=== PATIENT | female | born 1955 | race Caucasian/White ===

== ENCOUNTER 2019-11-09 08:29 | Outpatient (RCR) | payer SELFPAY | END 2019-11-09 08:30 | disposition home or self-care (01) | LOC: ANHDMC 08:29 | PROVIDERS: PCP Internal Medicine; Visit Provider Internal Medicine | DX: E10.65 Type 1 diabetes mellitus with hyperglycemia (principal) | CPT/HCPCS: 99199 ==

== ENCOUNTER 2020-01-09 09:34 | Outpatient (RCR) | payer BC, SELFPAY ==
[2020-01-09 09:42] VITALS: BMI 28.7
== END 2020-04-08 23:59 | disposition home or self-care (01) ==
LOC: ANHDMC 09:34
PROVIDERS: PCP Internal Medicine; Visit Provider Internal Medicine
DX: E10.65 Type 1 diabetes mellitus with hyperglycemia (principal); Z71.3 Dietary counseling and surveillance; Z71.89 Other specified counseling
CPT/HCPCS: 97802; G0108

== ENCOUNTER 2022-02-18 11:24 | Outpatient (RCR) | payer BC, SELFPAY ==
[2022-02-18] MEDS: FAMOTIDINE 20 MG TABLET PO (11:34)
[2022-02-18] MEDS: diphenhydrAMINE HCl CAP 25 MG CAPSULE PO (11:34)
[2022-02-18] MEDS: ACETAMINOPHEN 325 MG TABLET 650 MG PO (11:34)
[2022-02-18 11:38] VITALS: BP 151/71; PULSE 69; TEMP 36.3
[2022-02-18 11:52] VITALS: PULSE 72; O2SAT 99
[2022-02-18] MEDS: BEBTELOVIMAB 175 MG/2 ML VIAL IV PUSH (11:57)
[2022-02-18 12:42] VITALS: BP 141/72; PULSE 62; O2SAT 100
== END 2022-02-18 16:00 ==
LOC: AMCINF 11:24
PROVIDERS: Visit Provider Internal Medicine Hematology & Oncology
DX: U07.1 COVID-19 (principal); E11.9 Type 2 diabetes mellitus without complications
CPT/HCPCS: A9270; M0222; Q0222

== ENCOUNTER 2023-12-29 08:43 | Outpatient (CLI) | payer BC, SELFPAY ==
--- NOTE | ~2023-12-29 | MM_ITS ---
EXAMINATION: MM screening [facility] BI w nalini HISTORY: Screening mammogram TECHNIQUE: Craniocaudal and mediolateral oblique 3-D tomosynthesis images were obtained and synthetic 2-D images were generated. CAD analysis was submitted and interpreted. COMPARISON: 03/15/2018 bilateral diagnostic mammogram BREAST PARENCHYMAL COMPOSITION: FINDINGS: Biopsy marker on the left. History of bilateral benign breast biopsies. There is an approximately 1.7 cm circumscribed low-density opacity with halo sign in the posterior ou ter mid left breast. A circumscribed margins in particular halo sign are most consistent with benign process, likely a benign cyst. Scattered bilateral benign calcifications are noted. Otherwise there is no evidence of suspicious mass, calcification, or architectural distortion to sugg est malignancy in either breast. There has been no other suspicious interval change. IMPRESSION: 1. Benign findings. No mammographic evidence of malignancy. 2. Recommend routine screening mammography in one year. BI-RADS Category 2: Benign finding(s). Reviewed, dictated and finalized at location A.
== END 2023-12-29 08:44 | disposition home or self-care (01) ==
LOC: ANHIMG 08:47
PROVIDERS: PCP Internal Medicine; Visit Provider Nurse Practitioner
DX: Z12.31 Encounter for screening mammogram for malignant neoplasm of breast (principal); N60.02 Solitary cyst of left breast
CPT/HCPCS: 77063; 77067

== ENCOUNTER 2024-02-05 15:36 | Emergency (ER) | payer BC, SELFPAY ==
--- NOTE | ~2024-02-05 | XR_ITS ---
XR humerus LT Ordering provider: Enoc Eubanks MD History: . trauma . Comparison: None. FINDINGS: BONES: No acute fracture or dislocation. JOINT SPACES: Normal. SOFT TISSUES: Normal. IMPRESSION: No acute osseous abnormality left humerus. Reviewed, dictated and finalized at location A.
--- NOTE | ~2024-02-05 | XR_ITS ---
XR shoulder LT min 2V Ordering provider: Enoc Eubanks MD History: . trauma . Comparison: None. FINDINGS: BONES: Fracture of the distal metaphysis of the left clavicle with no displacement. No other fracture s seen. JOINT SPACES: The acromioclavicular joint is normal. The glenohumeral joint is normal. SOFT TISSUES: Normal. IMPRESSION: Fracture of the distal metaphysis of the left clavicle with no displacement of bones. Reviewed, dictated and finalized at location A.
[2024-02-05 15:49] VITALS: BP 185/70; PULSE 92; RESP 18; TEMP 36.6; O2SAT 97
--- NOTE | 2024-02-05 19:04 | ED.UPPEXIN ---
HPI - Extremity Injury (Upper) General Chief Complaint: Extremity Injury, Upper Stated Complaint: FALL L SHOULDER INJURY Time Seen by Provider: 02/05/24 17:25 Related Data Home Medications Medication Instructions Recorded Confirmed sumatriptan 20 mg/actuation nasal 20 mg intranasal Q2H PRN Shortness 09/12/19 09/17/23 spray (Imitrex) Of Breath Allergies Allergy/AdvReac Type Severity Reaction Status Date / Time hydrochlorothiazide Allergy Unknown Muscle Verified 02/05/24 15:37 weakness PMFSH Past Medical History Medical History (Updated 02/05/24 @ 19:05 by Enoc Eubanks MD) Anxiety Back pain Cataract Chicken pox Chlamydia COVID-19 Diabetes Goiter H/O one miscarriage Hearing loss Heartburn Hemorrhoids History of measles, mumps, or rubella Hyperlipidemia Hypertension Hypothyroidism Migraine Murmur Post-menopausal Rash Recurrent UTI Thyroid disease Type 1 diabetes Vitamin D deficiency Surgical History Surgical History H/O breast biopsy Left 2017, 2018 H/O knee surgery 2006, 2012 H/O thyroidectomy H/O: hysterectomy History of cholecystectomy History of tonsillectomy Family History Family History Mother Diabetes mellitus Family history of dementia Father Family history of cardiovascular disease Sibling Brain tumor Social History Social History (Updated 09/17/23 @ 09:44 by Margaret Bose [facility]) Smoking status: Never smoker Alcohol intake: never Do You Feel Safe in your Home?: Yes Lack of Transportation: No Lack of Food: Never True Current Housing: I Do Not Have Housing Concerned About Future Housing: No Difficulty Paying Gas/Electric Bills: No Difficulty Paying for Meds: No Currently Unemployed: No Education: High School Diploma/GED Difficulty w/ Childcare or Family Care: No Spiritual care concerns: No Course Vital Signs Vital signs: Vital Signs Temperature 97.8 F 02/05/24 15:49 Pulse Rate 92 02/05/24 15:49 Respiratory Rate 18 02/05/24 15:49 Blood Pressure 185/70 H 02/05/24 15:49 Pulse Oximetry 97 02/05/24 15:49 Temperature 97.8 F 02/05/24 15:49 Pulse Rate 92 02/05/24 15:49 Respiratory Rate 18 02/05/24 15:49 Blood Pressure 185/70 H 02/05/24 15:49 Pulse Oximetry 97 02/05/24 15:49 Discharge Plan Discharge Clinical Impression: Broken clavicle Patient Disposition: Home, Self-Care Condition: Stable Instructions: Clavicle Fracture (ED), How to Use a Sling (ED) Additional Instructions: Return the ER if you suffered no injury, you have numbness or weakness in arm or leg, or you have additional concerns. Follow-up with orthopedic surgery. Prescriptions: New hydrocodone-acetaminophen 5-325 mg tablet 1 tablet PO Q6H PRN (Reason: pain) Qty: 20 0RF No Action propranolol 20 mg tablet 20 mg PO DAILY PRN (Reason: anxiety) Qty: 30 0RF sumatriptan [Imitrex] 20 mg/actuation spray,non-aerosol 20 mg NASAL Q2H PRN (Reason: Shortness Of Breath) Rx Instructions: administer into one nostril as a single dose; if needed, administer 2nd dose into other nostril NTE 2 (total) doses per headache episode insulin aspart U-100 [Novolog U-100 Insulin aspart] 100 unit/mL solution 6 unit SUB-Q TID Qty: 3 3RF Lantus U-100 Insulin 100 unit/mL solution 12 unit SUB-Q DAILY Qty: 3 3RF (DME) FreeStyle Alfred 2 Helix Misc See Rx Instructions .ROUTE .MEDSUPPLY Qty: 1 0RF Rx Instructions: As directed (DME) FreeStyle Lite Strips Strip See Rx Instructions .ROUTE .MEDSUPPLY Qty: 300 3RF Rx Instructions: Use to test BS TID Glucagon (HCl) Emergency Kit 1 mg recon soln 1 mg subcut Q20M PRN (Reason: hypoglycemia) Qty: 1 3RF Rx Instructions: until target blood sugar attained levothyroxine [Synthroid] 100 mcg tablet 100 mcg PO PATRICIA
[2024-02-05 20:45] VITALS: BP 164/78; PULSE 88; RESP 15; O2SAT 100
== END 2024-02-05 20:45 | disposition home or self-care (01) ==
PROVIDERS: Emergency Provider Emergency Medicine; PCP Internal Medicine
DX: S42.032A Displaced fracture of lateral end of left clavicle, initial encounter for closed fracture (principal); E89.0 Postprocedural hypothyroidism; E78.5 Hyperlipidemia, unspecified; E10.9 Type 1 diabetes mellitus without complications; E55.9 Vitamin D deficiency, unspecified; Z86.16 Personal history of COVID-19; Z87.440 Personal history of urinary (tract) infections; Z90.710 Acquired absence of both cervix and uterus; Z90.49 Acquired absence of other specified parts of digestive tract; W01.198A Fall on same level from slipping, tripping and stumbling with subsequent striking against other object, initial encounter
CPT/HCPCS: 73030; 73060; 99283; 99284; A4565

== ENCOUNTER 2025-01-19 13:12 | Outpatient (CLI) | payer BC, SELFPAY ==
--- NOTE | ~2025-01-19 | MR_ITS ---
EXAMINATION: MR brain/brain stem wo/w con DATE: 01/19/2025 14:01 INDICATION: Amnesia TECHNIQUE: Magnetic resonance imaging (MRI) of the brain and brainstem was performed without and with 17 mL Multihance intravenous contrast. Sequences included sagittal and axial T1-weighted SE, axial d iffusion-weighted FS SE, axial 3D SWAN, axial T2-weighted FLAIR, and axial T2-weighted FSE. Postcontr ast axial and coronal T1-weighted SE was obtained. Apparent diffusion coefficient (ADC) maps were cre ated. COMPARISON: None. FINDINGS: There are no areas of restricted diffusion to suggest acute infarction. No intracranial hemorrhage or abnormal intracranial mass lesion. There are scattered areas of nonspecific increased T2-weighted si gnal intensity in the cerebral white matter, predominantly involving the deep and periventricular whi te matter which is within normal limits for age and likely sequela of chronic small vessel ischemic d isease.. There are no intraparenchymal signal abnormalities seen on the other pulse sequences. The ve ntricles are symmetric and normal in size. There are no abnormal extra-axial fluid collections. Flow voids are seen in the cerebral arteries on the T2-weighted sequences consistent with their expected p atency. Visualized orbits and soft tissues are unremarkable. There are no areas of abnormal enhanceme nt on the post contrast images. IMPRESSION: 1. Normal aging brain with mild scattered nonspecific white matter T2 hyperintensity consistent with chronic small vessel ischemic disease. No acute intracranial process or abnormally enhancing brain le sions. Reviewed, dictated and finalized at location B. IMPRESSION: 1. Normal aging brain with mild scattered nonspecific white matter T2 hyperinte nsity consistent with chronic small vessel ischemic disease. No acute intracran ial process or abnormally enhancing brain lesions.
--- OUTSIDE RECORDS SUMMARY | 2025-01-19 13:17 | XMS_ITS | Continuity of Care Document ---
Author Name [facility] Organization [facility] Care Team Providers Care Ship Fitter Name Role Phone [facility] Unavailable Unavailable Medications Combined list of outpatient medications from Department of Defense and Veterans Affairs facilities.Medications provided include 1) outpatient medications from the last 15 months, and 2) patient-reported medications. Medication Details Route Status Patient Instructions Prescription Expires Prescription Number Last Dispense Date Ordering Provider Order Date Order Qty Source amLODIPine (U/D) 5 MG ORAL TAB Be careful if taking OTCs.Ky e or use exactly as directed . 10/21/2024 [id number] 2023 90 [employer] Giancarlo [facility]ERRELL [place] [place] amLODIPine 5 mg tablet = 1 tab(s), Oral, Daily, # 90 EA, 1 total refill(s ), Hard Stop Oral (given by mouth) Ordered 08/10/2025 5 2024 90.0 Ambulat ory Pharmac y amLODIPine 5 mg tablet 5 mg, Oral, Daily, # 90 EA, 1 total refill(s ), Hard Stop Oral (given by mouth) Discont inued 08/10/2024 4 2023 90.0 Ambulat ory Pharmac y amLODIPine 5 mg tablet 5 mg, Oral, Daily, # 90 EA, 1 total refill(s ), Hard Stop Oral (given by mouth) Complet ed 03/11/2024 3 2023 90.0 Ambulat ory Pharmac y BD insulin syringe 0.3 ml 30 g 0.5 in [100] See Instruct kaylee, # 400 EA, 1 total refill(s ), Hard Stop Complet ed 06/21/2024 4 2023 400.0 Ambulat ory Pharmac y BD insulin syringe 0.3 ml 30 g 0.5 in [100] See Instruct kaylee, # 400 EA, 1 total refill(s ), Hard Stop Complet ed 01/02/2025 4 2024 400.0 Ambulat ory Pharmac y BD insulin syringe 0.3 ml 30 g 0.5 in [100] See Instruct ions, # 400 EA, 3 total refill(s ), Hard Stop Ordered 06/07/2025 4 2023 400.0 Ambulat ory Pharmac y BD insulin syringe 0.5 ml 30 g 12 mm [100EA] See Instruct ions, # 400 EA, 1 total refill(s ), Hard Stop Discont inued 02/02/2024 4 2023 400.0 Ambulat ory Pharmac y fosinopril 40 mg tablet 40 mg, Oral, Daily, # 90 EA, 3 total refill(s ), Hard Stop Oral (given by mouth) Discont inued 08/10/2024 4 2023 90.0 Ambulat ory Pharmac y fosinopril 40 mg tablet = 1 tab(s), Oral, Daily, # 90 EA, 1 total refill(s ), Hard Stop Oral (given by mouth) Ordered 08/10/2025 5 2024 90.0 Ambulat ory Pharmac y fosinopril 40 mg tablet 40 mg, Oral, Daily, # 90 EA, 1 total refill(s ), Hard Stop Oral (given by mouth) Complet ed 03/11/2024 3 2023 90.0 Ambulat ory Pharmac y insulin aspart 100 units/mL [10mL] = 0.06 mL, SubCutan eous, TID, # 30 mL, 3 total refill(s ), Hard Stop SubCut aneous (under the skin) Ordered 06/07/2025 5 2024 30.0 Ambulat ory Pharmac y insulin aspart 100 units/mL [10mL] See Instruct ions, # 30 mL, 0 total refill(s ), Hard Stop Complet ed 03/31/2024 4 2023 30.0 Ambulat ory Pharmac y insulin glargine 100 units/mL subcutaneou s solution INJECT 13 TO 16 UNITS SUB-CUTA NEOUSLY EVERY DAY DIRECTED *DISCARD VIAL 28 DAYS AFTER INITIAL USE*, # 30 mL, 1 total refill(s ), Acute Complet ed 04/13/2023 3 2022 30.0 Ambulat ory Pharmac y insulin glargine [Lantus] 100 units/mL inj-vial [10mL] See Instruct ions, SubCutan eous, # 30 mL, 3 total refill(s ), Hard Stop SubCut aneous (under the skin) Complet ed 02/01/2024 3 2023 30.0 Ambulat ory Pharmac y insulin glargine [Lantus] 100 units/mL inj-vial [10mL] = 0.12 mL, SubCutan eous, Daily, # 30 mL, 3 total refill(s ), Hard Stop SubCut aneous (under the skin) Ordered 06/07/2025 5 2024 30.0 Ambulat ory Pharmac y insulin glargine [Lantus] 100 units/mL inj-vial [10mL] See Instruct ions, # 30 mL, 0 total refill(s ), Hard Stop Complet ed 04/09/2024 4 2023 30.0 Ambulat ory Pharmac y levothyroxi ne (Synthroid) 100 mcg tablet 100 mcg, Oral, Daily, # 90 EA, 3 total refill(s ), Hard Stop Oral (given by mouth) Complet ed 03/02/2024 4 2023 90.0 Ambulat ory Pharmac y levothyroxi ne (Synthroid) 100 mcg tablet = 1 tab(s), Oral, Daily, # 90 EA, 3 total refill(s ), Hard Stop Oral (given by mouth) Discont inued 01/09/2025 5 2024 90.0 Ambulat ory Pharmac y levothyroxi ne (Synthroid) 100 mcg tablet = 1 tab(s), Oral, Daily, # 90 EA, 3 total refill(s ), Soft Stop Oral (given by mouth) Ordered 5 2024 90.0 Ambulat ory Pharmac y NovoLOG aspart 100 units/mL [10mL] See Instruct ions, SubCutan eous, # 30 mL, 3 total refill(s ), Hard Stop SubCut aneous (under the skin) Complet ed 02/01/2024 4 2023 30.0 Ambulat ory Pharmac y NovoLOG aspart 100 units/mL [10mL] See dose instruct ions in comments , # 30 mL, 1 total refill(s ), Acute Complet ed 04/13/2023 3 2022 30.0 Ambulat ory Pharmac y rosuvastati n 5 mg tablet = 1 tab(s), Oral, every other day, # 45 EA, 1 total refill(s ), Hard Stop Oral (given by mouth) Ordered 08/10/2025 5 2024 45.0 Ambulat ory Pharmac y rosuvastati n 5 mg tablet 5 mg, # 45 EA, 3 total refill(s ), Hard Stop Discont inued 08/10/2024 4 2023 45.0 Ambulat ory Pharmac y rosuvastati n 5 mg tablet See Instruct ions, # 45 EA, 1 total refill(s ), Hard Stop Discont inued 08/31/2023 3 2023 45.0 Ambulat ory Pharmac y Allergies, Adverse Reactions, Alerts Combined list of allergies from Department of Defense and Veterans Affairs facilities. It does not include entries that were removed or entered in error. Substance Category Reaction Severity Reaction type Status Date Reported Comments Source HYDROCHLOROT HIAZIDE Drug allergy (disorder) Unknown active 6 [employer] [facility]carlo [facility]ERRELL [place] [place] hydroCHLOROt hiazide Propensity to adverse reactions to drug Unknown Active muscle weakness,r aramis, shortness of breath Unknown Organizat ion Immunizations Combined list of available immunizations from the Department of Defense and Veterans Affairs facilities. Immunization Series Date Given Administered By Site Reaction Lot Number CVX Code Drug Boat Canvas Installer Status Comments Source influenza virus vaccine, whole virus 2002 [id number] [employer] ls complet ed influenza virus vaccine, whole virus 07/10/03 Given Ambulat ory Pharmac y influenza virus vaccine, whole virus 2002 zzLef t Arm [id number] 16 Nov[employer]is Pharm[employer] ls complet ed influenza virus vaccine, whole virus 07/10/03 Given Ambulat ory Pharmac y influenza virus vaccine, whole virus 1 2002 Unknown, Provider [id number] 16 [employer] (PWJ) complet ed influenza virus vaccine, whole virus DoD influenza virus vaccine, whole virus 2000 zzLef t Arm [id number] sanofi pasteur complet ed influenza virus vaccine, whole virus 07/01/01 Given Ambulat ory Pharmac y influenza virus vaccine, whole virus 1 2000 Unknown, Provider [id number] 16 Sanofi Pasteur ([facility]) complet ed influenza virus vaccine, whole virus DoD influenza virus vaccine, whole virus 2000 zzLef t Arm [id number] 16 [place] complet ed influenza virus vaccine, whole virus 09/03/00 Given Ambulat ory Pharmac y influenza virus vaccine, whole virus 2000 [id number] 16 [employer] complet ed influenza virus vaccine, whole virus 09/03/00 Given Ambulat ory Pharmac y influenza virus vaccine, whole virus 1 2000 Unknown, Provider [id number] 16 [facility] complet ed influenza virus vaccine, whole virus DoD Procedures Combined list of: 1) Procedures from Department of Veterans Affairs facilities going back up to thelast 18 months, not all [place] non-surgical procedures are included; 2) All procedures from the Department of Defense facilities. Procedure Procedure Type Code Date Perfomer Comments Sourc e No data available for this section Ambulato ry Pharmacy LOCAL EXCISION OF LESION OF BREAST 09/24/1995 DoD Social History Combined list of available smoking, tobacco, and other social history from Department of Defense and Veterans Affairs facilities. Social History Type Response Date Comment Sourc e This section is an empty social history section. DoD Assessment and Plan Combined list of future care activities from Department of Defense and Veterans Affairs facilities (e.g., assessment and plan notes, appointments, orders, and referrals). Additional future care activities may be listed in the Plan of Care section. Result Assessment and Plan Date Source Assessment and Plan No data available for this section 01/19/2025 Ambulatory Pharmacy Functional Status Combined list of recent functional and cognitive assessments recorded at Department of Defense and [facility] Affairs ([place] Functional [place] Measurement (FIM) Scale: 1 = Total Assistance (Subject = 0% +), 2 = Maximal Assistance (Subject = 25% +), 3 = Moderate Assistance (Subject = 50% +), 4 = Minimal Assistance (Subject = 75% +), 5 = Supervision, 6 = Modified Clinton (Device), 7 = Complete Clinton (Timely, Safely). Assessment Date/Time Source Assessment Type Assessment Skill Assessment Score Assessment Details No data available for this section
--- OUTSIDE RECORDS SUMMARY | 2025-01-19 13:17 | XMS_ITS | Referral Summary ---
Author Organization [facility] Address [address] [place] [address] Phone Care Team Providers Care Federal Judge Name Role Phone Allie Hubbard NP Primary Care Provider [phone] Allergies Active Allergy Reactions Criticality Noted Date Comments Hydrochlorothiazide Muscle pain,Shortnes s of breath,Unknown High 03/18/2018 muscle weakness,rash, shortness of breath Medications multivit minerals-folic acid-lutein (ESSENTIAL WOMAN 50+) 0.4-250 mg-mcg tablet daily Active fosinopril (MONOPRIL) 40 mg tablet Take 1 tablet (40 mg total) by mouth daily Active insulin aspart U-100 (NovoLOG U-100 Insulin aspart) 100 unit/mL injection Inject under the skin 6 Active levothyroxine (SYNTHROID, LEVOTHROID) 125 mcg tablet Take 100 mcg by mouth daily 2 Active insulin glargine (LANTUS) 100 unit/mL injection Inject 16 Units under the skin nightly Active dilTIAZem CD/XR/XT (CARDIZEM CD,DILACOR XR) 120 mg 24 hr capsule Take 1- 2 tablets daily for palpatations 180 capsule 3 9 Active Additional Information Patient not taking.Reported on 2023 amLODIPine (NORVASC) 5 mg tablet Take 1 tablet (5 mg total) by mouth daily 3 Active rosuvastatin (CRESTOR) 5 mg tablet Take 1 tablet (5 mg total) by mouth once a week 2X weekly Active propranoloL (INDERAL) 20 mg tablet TAKE 1 TABLET BY MOUTH ONCE DAILY NEEDED FOR ANXIETY 3 Active Active Problems Problem Noted Date Diagnosed Date Palpitations 10/06/2012 Type 1 diabetes mellitus 07/28/2012 Thyroid activity decreased 12/24/2011 Hypertension 12/24/2011 Hyperlipidemia 12/24/2011 Social History Tobacco Use Types Packs/Day Years Used Date Smoking Tobacco: Never Smokeless Tobacco: Never AUDIT-C Answer Date Recorded Q1: How often do you have a drink containing alcohol? Never 05/04/2024 Q2: How many drinks containi ng alcohol do you have on a typical day when you are drinking? Patient does not drink Q3: How often do you have si x or more drinks on one occasion? 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 Gender Identity Not on file Sexual Orientation Not on file Last Filed Vital Signs Vital Sign Reading Time Taken Comments Blood Pressure 145/82 05/04/2024 8:04 AM CDT Pulse 75 05/04/2024 8:04 AM CDT Temperature - - Respiratory Rate 18 05/04/2024 8:04 AM CDT Oxygen Saturation 98% 01/17/2019 2:54 PM CDT Inhaled Oxygen Concentration - - Weight 77.6 kg (171 lb) 05/04/2024 8:04 AM CDT Height 154.9 cm (5' 1) 05/04/2024 8:04 AM CDT Body Mass Index 32.31 05/04/2024 8:04 AM CDT Plan of Treatment Not on file Insurance [employer] [facility] [place] [address] [address] [place] [address] [place] [address] [place] Care Teams Federal Judge Relationship Specialty Start Date End Date Allie Hubbard NP [address] [place] [address] [address] PCP - General Internal Medicine 10/12/24
--- OUTSIDE RECORDS SUMMARY | 2025-01-19 13:17 | XMS_ITS | Clinical Summary ---
Author Organization [facility] Address [address] [place] [address] Phone Care Team Providers Care Supervisor Commissary Production Name Role Phone Allie Hubbard NP Primary Care Provider [phone] Allergies Active Allergy Reactions Criticality Noted Date [...] activity decreased 12/24/2011 Hypertension 12/24/2011 Hyperlipidemia 12/24/2011 Surgical History Surgery Date Site/Laterality Comments THYROID SURGERY TONSILLECTOMY HYSTERECTOMY CHOLECYSTECTOMY Medical History Medical History Date Comments Hypertension Thyroid disease Depression Migraines Diabetes mellitus (HCC) Family History Medical History Relation Name Comments Heart attack Father Family history of heart attack - (Added by TW Conv) Diabetes Other Heart disease Other Hypertension Other Relation Name Status Comments Father Other Social History Tobacco Use Types Packs/Day Years [...] on file 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 Gender Identity Not on file Sexual Orientation Not on file Obstetrics History Last Filed Vital Signs Vital Sign Reading [...] 05/04/2024 8:04 AM CDT Plan of Treatment Health Maintenance Due Date Last Done Comments Albumin Creatinine Ratio, Urine 1954 Colon Cancer Screening-Colonoscopy 1954 Depression Screening 1954 Fall Risk Assessment 1954 Foot Exam 1954 Hemoglobin A1C 1954 Hepatitis C Screening 1954 Osteoporosis Screening-Bone Density Scan 1954 TSH Level 1954 eGFR 1954 Dilated Eye Exam 1964 Lipid Panel 1964 DTaP/Tdap/Td Vaccine (1 - Tdap) 1965 Hepatitis B Screening 1972 Pneumococcal vaccine 65+ (1 of 2 - PCV) 1973 Zoster Vaccine (1 of 2) 2004 Well Visit 65+ 2019 Breast Cancer Screening-Mammogram 03/17/2020 019 Influenza Vaccine (Season Ended) 2025 07/10/2003, 07/01/2001, 09/03/2000 Insurance [employer] [place] [employer] [address] [employer] [place] [address] [employer] MD Care Teams Supervisor Commissary Production Relationship Specialty Start Date End Date Allie Hubbard NP [address] [place] [address] [address] [place], [place] [id number] PCP - General Internal Medicine 10/12/24
--- OUTSIDE RECORDS SUMMARY | 2025-01-19 13:17 | XMS_ITS | Clinical Summary ---
Author Organization [facility] Address [address] 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 This disclosure is being madepursuant to the Care Everywhere program and may not contain all information available regarding this patient. Last updated 18.[facility] [employer] Family History Medical History Relation Name Comments Cancer - Breast Paternal Aunt Relation Name Status Comments Paternal Aunt Social History Tobacco Use Types Packs/Day Years Used Date Smoking Tobacco: Never Assessed Comments Unknown Sex and Gender Information Value Date Recorded Sex Assigned at Not on file Legal Sex Female 3:55 PM CDT Gender Identity Not on file Sexual Orientation Not on file Plan of Treatment Health Maintenance Due Date Last Done Comments BONE DENSITY TESTING 1954 COLOGUARD (AGES 45-75) - COL ON CA SCREENING 1954 COLON MONITORING 1954 COLONOSCOPY - COLON CA SCREENING 1954 CT COLONOGRAPHY - COLON CA SCREENING 1954 Colorectal Cancer Screening 1954 FIT - COLON CA SCREENING 1954 FLEX SIG - COLON CA SCREENING 1954 LIPID TESTING 1954 HEPATITIS C SCREENING 03/03/1972 DTAP/TDAP/TD VACCINES (1 - Tdap) 1973 PNEUMOCOCCAL VACCINE 50+ (1 of 1 - PCV) 2004 ZOSTER VACCINE (1 of 2) 2004 MAMMOGRAM 03/17/2021 03/17/2019, 04/20/2017 COVID-19 VACCINE (2023-2 5 season) 2024 DEPRESSION SCREENING 08/23/2024 INFLUENZA VACCINE (Season Ended) 2025 Respiratory Syncytial Virus (RSV) Vaccine Pt: or over 60 yrs (1 - 1-dose 75+ series) 2029 HEPATITIS B VACCINE Aged Out No longe r eligible based on patient's age to complete this topic HIB VACCINE Aged Out No longer eligi ble based on patient's age to complete this topic HPV VACCINE Aged Out No longer eligi ble based on patient's age to complete this topic MENINGOCOCCAL (Group B) VACCINE SHARED DECISION-MAKING Aged Out No longer eligible based on patient's age to complete this topic MENINGOCOCCAL GROUPS A/C/Y/W VACCINE Aged Out No longer eligible b ased on patient's age to complete this topic Procedures Procedure Name Priority Date/Time Associated Diagnosis Comments MAMMO BILAT SCREENING Routine 03/17/2019 1:47 PM CDT Breast cancer screening from Last 3 Months or Most Recently Relevant to Health Maintenance Results * MAMMO BILAT SCREENING (03/17/2019 1:47 PM CDT) Anatomical Region Laterality Modality Breast Bilateral Mammography 03/20/2019 10:0 7 AM CDT Addenda Addendum by Marilin Simpson MD on 03/22/2019 12:39 PM CDT ORIGINAL REPORT BILATERAL SCREENING MAMMOGRAM DATE: 03/17/2019 COMPARISON: Multiple prior mammograms just received from [facility] dated 03/19/2017 and 05/17/2015. HISTORY: Screening mammogram. 64-year-old female with past medical history of mastitis/infection in the left breast as well as bilateral breast cysts. Remote history of atypical hyperplasia status post biopsy at age 36. She was last seen at [facility] on 03/19/2017. At that time, 2 probably benign left breast masses at 4:00, 7 cm from the nipple were identified on the ultrasound. Short-term follow-up ultrasound was recommended. She does not appear to have returned for follow-up. TECHNIQUE: Images were performed using 3D tomosynthesis images with reconstructed/synthetic 2D images and CAD analysis. BREAST COMPOSITION: The breasts are heterogeneously dense, which may obscure small masses. FINDINGS: No suspicious mass or calcifications in either breast. Bilateral benign-appearing stable calcifications. Bilateral oval circumscribed masses, most of which have decreased in size, consistent with a benign etiology. IMPRESSION: No mammographic evidence of malignancy in either breast. ASSESSMENT: BI-RADS 0: Need additional imaging evaluation. RECOMMENDATION: Follow-up targeted ultrasound of the left breast, as per [facility]. Report dictated by Garcia Auguste DO (psychiatry resident). Dr. RAMON Cano M.D. have personally reviewed and interpreted this examination/study. This report was electronically signed by RAMON JASSO M.D. on 03/20/2019 1:23 PM . ADDENDUM #1 Addendum: More recent mammograms from [facility] on 03/15/2018, as well as a path report from core needle biopsy of the left breast performed on September 06 2018 are now available for review. With this additional information, the previously described probably benign mass within the left breast for which follow-up was recommended and has been biopsied and is benign. No suspicious new mass, grouped microcalcification, or architectural distortion is seen within either breast. Small circumscribed masses within both breasts are noted, some of which have increased and some of which have decreased in size, considered benign. A biopsy marker is seen within the lower outer left breast as well as the upper outer left breast. IMPRESSION: No mammographic evidence of malignancy. ASSESSMENT: BI-RADS category 2, benign findings. Recommendation: Annual screening mammograms are recommended. This report was electronically signed by MICHI SIMPSON M.D. on 03/22/2019 12:36 PM . Impressions 03/20/2019 1:23 PM CDT IMPRESSION: No mammographic evidence of malignancy in either breast. ASSESSMENT: BI-RADS 0: Need additional imaging evaluation. RECOMMENDATION: Follow-up targeted ultrasound of the left breast, as per [facility]. Report dictated by Garcia Auguste DO (psychiatry resident). Dr. RAMON Cano M.D. have personally reviewed and interpreted this examination/study. This report was electronically signed by RAMON JASSO M.D. on 03/20/2019 1:23 PM . Narrative 03/20/2019 1:23 PM CDT BILATERAL SCREENING MAMMOGRAM DATE: 03/17/2019 COMPARISON: Multiple prior mammograms just received from [facility] dated 03/19/2017 and 05/17/2015. HISTORY: Screening mammogram. 64-year-old female with past medical history of mastitis/infection in the left breast as well as bilateral breast cysts. Remote history of atypical hyperplasia status post biopsy at age 36. She was last seen at [facility] on 03/19/2017. At that time, 2 probably benign left breast masses at 4:00, 7 cm from the nipple were identified on the ultrasound. Short-term follow-up ultrasound was recommended. She does not appear to have returned for follow-up. TECHNIQUE: Images were performed using 3D tomosynthesis images with reconstructed/synthetic 2D images and CAD analysis. BREAST COMPOSITION: The breasts are heterogeneously dense, which may obscure small masses. FINDINGS: No suspicious mass or calcifications in either breast. Bilateral benign-appearing stable calcifications. Bilateral oval circumscribed masses, most of which have decreased in size, consistent with a benign etiology. Procedure Note Ramon Jasso MD / Marilin Simpson MD - 03/20/2019 BILATERAL SCREENING MAMMOGRAM DATE: 03/17/2019 COMPARISON: Multiple prior mammograms just received from [facility] dated 03/19/2017 and 05/17/2015. HISTORY: Screening mammogram. 64-year-old female with past medicalhistory of mastitis/infection in the left breast as well as bilateral breast cysts. Remote history of atypical hyperplasia status post biopsy at age 36. She was last seen at [facility] on 03/19/2017. At that time,2 probably benign left breast masses at 4:00, 7 cm from the nipple were identified on the ultrasound. Short-term follow-up ultrasound was recommended. She does not appear to have returned for follow-up. TECHNIQUE: Images were performed using 3D tomosynthesis images with reconstructed/synthetic 2D images and CAD analysis. BREAST COMPOSITION: The breasts are heterogeneously dense, which may obscure small masses. FINDINGS: No suspicious mass or calcifications in either breast.Bilateral benign-appearing stable calcifications. Bilateral oval circumscribed masses, most of which have decreased in size, consistent with a benign etiology. IMPRESSION: No mammographic evidence of malignancy in either breast. ASSESSMENT: BI-RADS 0: Need additional imaging evaluation. RECOMMENDATION: Follow-up targeted ultrasound of the left breast, as per [facility]. Report dictated by Garcia Auguste DO (psychiatry resident). I, Dr. RAMON JASSO M.D. have personally reviewed and interpreted this examination/study. This report was electronically signed by RAMON JASSO M.D. on 03/20/2019 1:23 PM . Tabatha Carranza DO MAMMO ORDERABLES Edited Res ult - Final from Last 3 Months or Most Recently Relevant to [place] [id number] ANTHEM ANTHEM Care Teams Diesel Truck Mechanic Relationship Specialty Start Date End Date Garcia Gonzales DO PCP - General Internal Medicine 03/17/19
--- OUTSIDE RECORDS SUMMARY | 2025-01-19 13:17 | XMS_ITS | Data Portability ---
Author Organization [place] [facility], Main Office Address [address] [place] [address] Care Team Providers Care Line Erector Name Role Phone TARIQ BAINS Primary Care Provider TARIQ BAINS Referring Provider [phone] Assessment Encounter Date Assessment Date Assessment LastModified by Organization Details LastModified Time 06/01/2024 06/01/2024 This note is dictated and transcribed by [employer]. Telecommunication Equipment Repairer variances may occur. Despite proofreading, typographical errors may occur. Occasional wrong-word or 'mtpfu-w-zfuz' substitutions may have occurred due to the inherent limitations of voice recording. Read the chart carefully and recognize, using context, where substitutions have occurred. Not available 06/01/2024 11:18:10 07/24/2024 07/24/2024 This note is dictated and transcribed by [employer]. Telecommunication Equipment Repairer variances may occur. Despite proofreading, typographical errors may occur. Occasional wrong-word or 'fzrjq-s-caxd' substitutions may have occurred due to the inherent limitations of voice recording. Read the chart carefully and recognize, using context, where substitutions have occurred. Not available 07/24/2024 10:01:52 09/04/2024 09/04/2024 This note is dictated and transcribed by [employer]. Telecommunication Equipment Repairer variances may occur. Despite proofreading, typographical errors may occur. Occasional wrong-word or 'cnghg-s-whcs' substitutions may have occurred due to the inherent limitations of voice recording. Read the chart carefully and recognize, using context, where substitutions have occurred. Not available 09/04/2024 10:34:06 Plan of Treatment Reminders Order Date Submit Date Provider Last Modified By Organization Details Last Modified Time Details Appointments None record ed. Lab None record ed. Referral None record ed. Procedures None record ed. Surgeries None record ed. Imaging XR, ankle, 3 or more view 024 06/01/20 24 [email or web address] [facility] [place], [address], [place], [address], 11:19:26 Medication Orders None record ed. Patient TargetsNo targets recorded. Patient Instructions Encounter Date Encounter Id Patient Instructions Last Modified By Organization Details Last Modified Time 06/01/2024 [id number] achilles tendon: exercises Not available 06/01/2024 11:21:02 achilles tendonitis education Not available 06/01/2024 11:21:02 physical therapy evaluation* [email or web address] Not available 06/08/2024 11:34:36 Reason for Referral None Reported. Results Created Date Observation Date Name Description Value Unit Range Abnormal Flag Note LastModifiedBy Organization Detail LastModifiedTime 01/10/20 21 XR, elbow No observ ation record ed. [id number] [id number] [place] [address], [place], [address], 10/21/2022 13:55:22 06/01/20 24 XR, ankle , 3 or more view No observ ation record ed. [email or web address] [facility] [place] [address], [place], [address], 06/01/2024 11:19:24 Result Notes None recorded. Problems Name Problem SNOMED Code Status Onset Date Resolution Date Notes Provider Name and Address Organization Details Recorded Time Medial epicondyli tis 99903540 Active Not Available [employer] 3 13:53:09 Left Achilles tendinitis 1969505863131 02 Active 2023 Percy Hernandez DPM [address] [facility] [address], [place], [address] , [facility] [employer] 4 11:18:08 Calcaneal spur 80519771 Active 2023 Percy Hernandez DPM [address], [place], [address] , [employer] 4 11:18:40 Problem Notes None recorded. Procedures Surgical History Date Name Laterality Status Provider Name and Address Organization Details Recorded Time 5 Joint Injection-Podi atry 6217 completed Percy Hernandez DPM [address], [place], [address], [employer] 09/04/2024 10:33:48 4 Plantar Fascia Injection Left Foot completed Percy Hernandez DPM [address], [place], [address], [employer] 07/24/2024 10:49:50 Imaging Results None recorded. Procedure Notes None recorded. Medical Equipment None Reported. Allergies Allergen ID Allergen Name Allergen Category Reaction Reaction Severity Criticality Documentation Date Start Date Code Code System Note Provider Name and Address Organization Details Recorded Time 59934 hydrochlo rothiazid e medicatio n respirato ry distress Not available Not available 10/21/2022 5487 RxNorm muscl e weakn ess Not Available [facility] 3 13:55:17 Medications Name Sig Start Date Stop Date Status Note LastModified by Organization Details LastModified Time hydrocodone 5 mg-acetamin ophen 325 mg tablet TAKE 1 TABLET BY MOUTH EVERY 6 HOURS NEEDED FOR PAIN 07/24 completed Not Available Not Available Not Available Synthroid 125 mcg tablet 07/24 completed Not Available Not Available Not Available Synthroid 100 mcg tablet active Not Available Not Available Not Available Lantus U-100 Insulin 100 unit/mL subcutaneou s solution active Not Available Not Available N ot Available amlodipine 5 mg tablet active Not Available Not Available Not Available Kenalog 10 mg/mL suspension for injection In office injection administe red by the provider active ND: 0003- 0494- 20 Not Available Not Available Not Available amlodipine 10 mg tablet 07/24 completed Not Available Not Available Not Available insulin aspart U-100 100 unit/mL subcutaneou s solution active Not Available Not Available N ot Available fosinopril 40 mg tablet active Not Available Not Available Not Available diclofenac sodium 75 mg tablet,karson yed release 07/24 completed Not Available Not Available Not Available sumatriptan 20 mg/actuatio n nasal spray 01/09 completed Not Available Not Available Not Available Premarin 0.3 mg tablet 01/09 completed Not Available Not Available Not Available Premarin 0.625 mg tablet 01/09 completed Not Available Not Available Not Available rosuvastati n 5 mg tablet active Not Available Not Available Not Available levothyroxi ne active Not Available Not Available Not Available Vitamin D3 active Not Available Not Av ailable Not Available Multiple Vitamin, Womens active Not Available Not Available Not Available lidocaine (PF) 10 mg/mL (1 %) injection solution In office injection administe red by the provider active [facility]: 0409- 4276- 17 Not Available Not Available Not Available BD Insulin Syringe Ultra-Fine 0.5 mL 30 gauge x 1/2 active Not Available Not Available Not Available BD Insulin Syringe Ultra-Fine 0.3 mL 30 gauge x 1/2 active Not Available Not Available Not Available FreeStyle Lite Strips active Not Available Not Available Not Available BD Insulin Syringe Ultra-Fine 0.3 mL 31 gauge x 5/16 active Not Available Not Available Not Available Fluzone Quad 2017-(PF) 60 mcg(15 mcgx4)/0.5 mL intramuscul ar syringe 01/09 completed Not Available Not Available Not Available FreeStyle Alfred 2 Sensor kit CHANGE EVERY 14 DAYS active Not Available Not Available No t Available FreeStyle Alfred 2 [place] USE DIRECTED 07/24 completed Not Available Not Available Not Available Vitals Date Recorded Body height Body mass index (BMI) Body weight Heart rate Respiratory rate Oxygen saturation Oxygen saturation in Arterial blood by Pulse oximetry Systolic blood pressure Diastolic blood pressure Provider Name and Address Organization Details Last Updated DateTime 5 170.18 cm 26.3 kg/m2 42418.5 2 g 73 /min 14 /min 99 % 99 % 159 mm[Hg] 90 mm[Hg] Danitza VERDIN - An[place] [employer] [facility] 5 09:53:52 Date Recorded Body height Body mass index (BMI) Body weight Heart rate Systolic blood pressure Diastolic blood pressure Provider Name and Address Organization Details Last Updated DateTime 5 170.18 cm 26.3 kg/m2 87378.5 2 g 79 /min 176 mm[Hg] 99 mm[Hg] Marilin Roman [facility] [employer] [facility] 5 10:41:48 Date Recorded Body mass index (BMI) Body height Body weight Provider Name and Address Organization Details Last Updated DateTime 01/09/2021 28.2 kg/m2 170.18 cm 82590.63 g Not Available [facility] 10/21/2022 13:52:55 Date Recorded Heart rate Respiratory rate Oxygen saturation Oxygen saturation in Arterial blood by Pulse oximetry Body height Body mass index (BMI) Body weight Systolic blood pressure Diastolic blood pressure Provider Name and Address Organization Details Last Updated DateTime 4 79 /min 14 /min 98 % 98 % 170.18 cm 26.3 kg/m2 87041.5 2 g 164 mm[Hg] 82 mm[Hg] Danitza [place] [employer] [facility] [employer] [facility] 4 10:35:04 Date Recorded Body height Body mass index (BMI) Body weight Heart rate Respiratory rate Oxygen saturation Oxygen saturation in Arterial blood by Pulse oximetry Systolic blood pressure Diastolic blood pressure Provider Name and Address Organization Details Last Updated DateTime 4 170.18 cm 26.3 kg/m2 58887.5 2 g 72 /min 14 /min 98 % 98 % 168 mm[Hg] 94 mm[Hg] Danitza [place] [employer] [facility] [employer] [facility] 4 09:47:28 Social History Question Answer Notes LastModified by [employer] Details LastModified Time Tobacco Smoking Status Never Smoker Not Available Replaced by [facility] 10/21/2022 13:52:24 What Is Your Level Of Caffeine Consumption? Occasional Information not available 06/01/2024 What Was The Date Of Your Most Recent Tobacco Screening? 06/01/2024 Information not available 06/01/2024 Has Tobacco Cessation Counseling Been Provided? No Information not available 06/01/2024 Sex: Unknown Functional Status Question Answer Note LastModified by [employer] Details LastModified Time Do you use any illicit or recreational drugs? No Information not available 06/01/2024 Do you or have you ever used any other forms of tobacco or nicotine? No Information not available 06/01/2024 What is your level of alcohol consumption? None [id number] Information not available 10/21/2022 Mental Status None recorded. Family History Relationship Description Onset Age of this Age Resolved Age Notes LastModified by Organization Details LastModified Time Father Heart disease [id number] Not available 10/21/2022 13:52:29 Father History of hypertension [id number] Not available 10/21/2022 13:52:29 Mother Diabetes mellitus [id number] Not available 10/21/2022 13:52:29 Brother Malignant neoplastic disease Not available 2023 11:18:50 Medical History Condition Response ARTHRITIS Y THYROID DISEASE Y HEADACHES/MIGRAINES Y ANXIETY DISORDER Y DIABETES, TYPE Y USE OF NSAIDS Y BACK / NECK PROBLEMS Y HYPERTENSION Y HIGH CHOLESTEROL / HYPERLIPIDEMIA Y Gynecological HistoryNo gynecological history recorded. Obstetrics History GPAL:G 0 P 0 0 0 0 Past Encounters Encounter ID Performer Location Encounter Start Date Encounter Closed Date Diagnosis/Indication Diagnosis SNOMED-CT Code Diagnosis ICD10 Code Diagnosis Note [id number] Maury Linda MD [facility] [place] [address] [facility] [address] [place] [address] 01/09/2021 00:00:00 01/09/2021 15:27:31 [id number] Percy Hernandez DPM [facility] [place] [address] [facility] [address] [place] [address] 06/01/2024 10:28:12 06/01/2024 11:35:33 Left Achilles tendinitis 7299887496 99705 M76.62 educated on conditionR ice therapy reviewedNo strenuous activities Will send to physical therapyEdu cated on heel lifts and appropriat e use of liftsfollo w-up in 1 month Calcaneal spur 09650309 M77.32 posterior heel [id number] Percy Hernandez DPM [facility] [place] [address] [facility] [address] [place] [address] 07/24/2024 09:36:25 08/17/2024 16:42:24 Left Achilles tendinitis 3844626444 30642 M76.62 educated on conditionp atient has Cam boot at home and I did recommend the patient use this daily with walking for the next 4 weeksRice therapy reviewedNo strenuous activities Will send to physical therapyfol low-up 4 weeks [id number] Percy Hernandez DPM [facility] [place] [address] [place] [address] 09/04/2024 09:42:55 09/15/2024 12:50:20 Left Achilles tendinitis 9974065691 83092 M76.62 steroid injection central aspect tendon sheath of the Achilles tendon--educa dayne on conditionp atient has Cam boot at home and I did recommend the patient use this daily with walking for the next 4 weeksRice therapy reviewedNo strenuous activities [place] physical therapyfol low-up 3 weeks [id number] Percy Hernandez DPM [facility] [place] [address] [place] [address] 10/02/2024 10:08:21 10/03/2024 15:26:44 Left Achilles tendinitis 3810648124 05457 M76.62 steroid injection central aspect tendon sheath of the Achilles tendon--educa dayne on conditionD C cam bootcontin ue supportive shoe gearRice therapy reviewedsl ow return to strenuous activities follow-up as needed Health Concerns Section Related Observation LastModified by Organization Detai ls LastModified Time None Recorded Concern Status LastModified by Organization Details LastModified Time None Recorded Advance Directives Directive None Recorded Payers Encounter Date Sequence Insurance Name Policy Number Policy Childress Covered Member ID Childress Member ID Guarantor Name 06/01/2024 1 [place] [id number] Wilmer Jacobson [id number] 18 Evelyn Boss McNeill 07/24/2024 1 [place] [id number] Wilmer Jacobson [id number] 18 Evelyn Boss McNeill 09/04/2024 1 [id number] Wilmer Jacobson [id number] 18 Evelyn Boss McNeill 10/02/2024 1 [place] [id number] Wilmer Jacobson [id number] Evelyn Boss Indira Notes Date Note Type Note Provider Name and Address Organization Details Recorded Time 01/09/2021 text/html Elbow/ForearmRep ort ed bypatient.Hand Dominance:left Location:lateral; deep Quality:aching; throbbing; frequent Severity:moderate Timing:recurrent; chronic Context:lifting; overuse Aggravating Factors:lifting; carrying; twisting; gripping; grasping Alleviating Factors:ice; rest; elevation; stretching Associated Symptoms:no weakness; no numbness; no tingling; no redness; no warmth; no ecchymosis; no catching/locking; no popping/clicking; no buckling; no grinding; no instability; no drainage; no fever; no chills; no weight loss; no change in bowel/bladder habits; no hand pain; no inflammatory bowel disease; no hypethesias; no paresthesias; no gout; no psoriasis; no arthritis;swelling; radiating to dorsal forearm Not Available [employer] 01/09/2021 15:27:31 06/01/2024 text/html . Patient is a 69-year-old female she presents the office with complaints of left Achilles tendon pain. Patient has been seen by another superintendent transmission in the past to which he has performed an MRI several years ago he also placed her in a boot for about 2 and half months. Patient states that she has not been to formal physical therapy she states that this has been ongoing for approximately 3 years and continues to have discomfort she has noticed thickening of the Achilles tendon. Patient denies any bruising, injury, swelling. Patient states when she is walking the Achilles becomes tender and painful she states that the pain is worse at night it is a dull achy sensation in the Achilles tendon she denies any other complaints. Percy Hernandez DPM [address] [facility] [address], [address], [employer] 06/01/2024 11:34:35 07/24/2024 text/html . Patient is a 69-year-old female who returns the office for follow-up on left Achilles tendinitis. Patient states that she has been undergoing physical therapy it has not improved she continues have pain with walking. Patient denies any other injury or wounds to the area. Patient states when she is off her foot does feel better. Percy Hernandez DPM [address], [place], [address], [employer] 07/24/2024 10:51:29 09/04/2024 text/html . Patient is a 69-year-old female who returns the office for follow-up on left Achilles tendinitis. Patient has been to physical therapy as well as using a cam boot for approximately 6 weeks she states that she continues have pain she has not experienced any significant improvement. I recommended a steroid injection today patient agreed to proceed despite possible risks. Patient understands all risks. Patient denies any other complaints. Percy Hernandez DPM [address], [place], [address], [employer] 09/04/2024 10:35:06 10/02/2024 text/html . Patient is a 69-year-old female she returns for follow-up on left Achilles tendinitis she states that after the injection she has had no further pain she denies any other complaints. I recommend that she continue stretching and supportive shoe gear to prevent recurrence. Patient states understanding. Patient denies any other complaints. Percy Hernandez DPM [address], [place], [address], [facility] 10/02/2024 11:36:51 OBGyn Episode No OBEpisode recorded.
--- OUTSIDE RECORDS SUMMARY | 2025-01-19 13:17 | XMS_ITS | Clinical Summary ---
Author Organization [facility] [place] Address [address] [place] [address] Phone Care Team Providers Care Emergency Medical Services Coordinator Name Role Phone Garcia Gonzales DO Primary Care Provider Allergies Active Allergy Reactions Criticality Noted Date Comments Hydrochlorothiazide Shortness of Breath/Wheezing,Muscle Pain High 03/18/2018 Medications fosinopril (MONOPRIL) 40 mg tablet Take 40 mg by mouth daily. Active levothyroxine 125 mcg tablet Take 125 mcg by mouth daily. Active insulin glargine,hum.re c.anlog (LANTUS SUBCUT) Inject 15 Units by subcutaneous injection daily at bedtime. Active SUMAtriptan (IMITREX) 20 mg/actuation [place], Non-Aerosol 1 [place] may repeat in 2 hours; max dose 40mg in 24 hours . Active insulin aspart U-100 (NovoLOG U-100 Insulin aspart) 100 unit/mL vial Inject by subcutaneous injection. 6 Active amLODIPine (NORVASC) 5 mg tablet 3 9 Active OTHER menoquil for hot flashes; 2 tablets BID . 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 Personal history of long-ter m (current) use of postmenopausal hormone replacement therapy 09/13/2018 Screening for breast cancer 03/11/2018 Fibroadenoma, left 03/11/2018 Resolved Problems Problem Noted Date Diagnosed Date Resolved Date Abnormal ultrasound of breast 09/01/2018 12/15/2018 Hormone replacement therapy 03/18/2018 12/15/2018 Mastodynia of left breast 03/11/2018 Social History Tobacco Use Types Packs/Day Years Used Date Smoking Tobacco: Never Smokeless Tobacco: Never Alcohol Use Standard Drinks/Week Comments No 0 (1 standard drink = 0.6 oz pur e alcohol) Comments No Sex and Gender Information Value Date Recorded Sex Assigned at Not on file 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 Gender Identity Not on file Sexual Orientation Not on file Last Filed Vital Signs Vital Sign Reading Time Taken Comments Blood Pressure 122/72 03/22/2019 2:29 PM CDT Pulse 71 03/22/2019 2:29 PM CDT Temperature 36.7 C (98 F) 03/22/2019 2:29 PM CDT Respiratory Rate - - Oxygen Saturation 97% 03/22/2019 2:29 PM CDT Inhaled Oxygen Concentration - - Weight 82.1 kg (180 lb 14.4 oz) 03/22/2019 2:29 PM CDT Height 170.2 cm (5' 7) 03/22/2019 2:29 PM CDT Body Mass Index 28.33 03/22/2019 2:29 PM CDT Plan of Treatment Health Maintenance Due Date Last Done Comments DTAP/TDAP/TD VACCINES (1 - Tdap) 1973 COLORECTAL SCREENING 1999 Colorectal Cancer Screening 1999 FIT-DNA Q 3 years 1999 FIT/FOBT Q 1 year 1999 Flex Sig/CT Colonography Q 5 years 1999 PNEUMOCOCCAL VACCINE 50+ YEA RS (1 of 1 - PCV) 2004 ZOSTER VACCINE (1 of 2) 2004 OSTEOPOROSIS SCREENING 2019 BREAST CANCER SCREENING 03/17/2020 03/17/20 19, 03/15/2018, 03/15/2018, Additional history exists INFLUENZA VACCINE (#1) 2024 06/06/2018 RSV VACCINE (60+ or ) (1 - 1-dose 75+ series) 2029 Procedures Procedure Name Priority Date/Time Associated Diagnosis Comments MAMMOGRAM REPORT Routine 03/17/2019 from Last 3 Months or Most Recently Relevant to Health Maintenance Results * MAMMOGRAM REPORT (03/17/2019) us Abstract Provider MAMMO ORDERABLES Final Result [facility] from Last 3 Months or Most Recently Relevant to Health Maintenance Care Teams Emergency Medical Services Coordinator Relationship Specialty Start Date End Date Garcia Gonzales DO [address] [place] [address] PCP - General Internal Medicine 03/18/18
== END 2025-01-19 13:13 | disposition home or self-care (01) ==
PROVIDERS: PCP Nurse Practitioner; Visit Provider Nurse Practitioner
DX: R41.3 Other amnesia (principal); R90.82 White matter disease, unspecified
CPT/HCPCS: 70553; A9577